=== PATIENT | male | born 1985 ===

== ENCOUNTER 2018-07-27 09:40 | Outpatient (CLI) | payer OTHER | END 2018-07-27 09:41 | disposition home or self-care (01) | LOC: C.PAT 09:40 | DX: M54.5 Low back pain (principal) ==

== ENCOUNTER 2018-08-17 05:51 | Inpatient (IN) | payer OTHER ==
[2018-07-27 09:54] VITALS: BMI 28.1
--- NOTE | 2018-08-17 07:07 | HP ---
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 He fell off a ladder dropping 8 feet. He broke his clavicle, had a right shoulder injury, but has been complaining of severe low back pain since this accident. He rates the level of pain at its baseline as a 7 on a 0 to 10 scale but escalates up to a full 10. He notes that Valsalva maneuvers exacerbated the pain. He has some numbness in his left calf, occasionally in the right foot. His treatment has included over a year of physical therapy. He has had 3 lumbar epidural steroid injections without benefit. PAST MEDICAL HISTORY: Otherwise benign. No ongoing medical problems. PAST SURGICAL HISTORY: Other than the shoulder surgery, no prior surgery. ALLERGIES: NO ALLERGIES. SOCIAL HISTORY: He has never smoked. He drinks socially. PHYSICAL EXAMINATION: EXTREMITIES: He does demonstrate good strength throughout. He has weakness in finger abduction and adduction. He does have a diminished in the ulnar half of the hand. Reflex is 1+ throughout. Baseline gait is within normal limits. He has adequate tandem. Romberg is negative. He has impressive tenderness to palpation of low lumbar area. Range of motion is limited in both flexion as well as extension. Straight leg raising produces back pain bilaterally. LABORATORY DATA: MRI shows signal loss and prolapse at L4-L5 and L5-S1. IMPRESSION: A lumbar discogram was intensely positive with injection of the L4-L5 disc, reproducing concordant pain at the level of 9. L3-L4 was entirely negative. L5-S1 produced minimal pain at the level of 2. There was epidural extravasation of the dye with the injection at the L4-L5 disc. Post-discography MRI documented tear with bilateral foraminal stenosis. PLAN: I had a long discussion with Mr. Cleaning about the options at this point. He certainly failed rather long-term conservative treatment. The discogram definitively documented the L4-L5 disc as his pain generator. I opened him the possibility of decompression, fixation, and fusion at this level. The nature of this procedure, the rationale behind it, alternatives, potential risks and complications, realistic chance of success, recovery time, and long-term outlook were discussed with him at length. All his questions were answered. He clearly understood all the above and elected to proceed. He is now being admitted for L4-L5 posterior lumbar interbody fixation and fusion. Danie Neil MD
[2018-08-17] MEDS ORDERED: ceFAZolin 1 gm in NS 1 GM/100 ML BAG IVPB ONE ×2 (07:29→08:57)
[2018-08-17] MEDS ORDERED: Absorbable Gelatin Sponge Size 100 ONE (07:29)
[2018-08-17] MEDS ORDERED: Bupivacaine Liposomal Inj 20 ml INFIL ONE (07:30)
[2018-08-17] MEDS ORDERED: Bupivacaine HCl 0.5% PF (10 ml) Inj ONE (07:31)
[2018-08-17] MEDS ORDERED: Lidocaine/Epinephrine 1% 1:100000 10 ML IJ ONE (07:31)
[2018-08-17] MEDS ORDERED: Thrombin Topical 20,000 Intl Units Spray Kit TOP ONE (07:31)
[2018-08-17] MEDS ORDERED: Sodium Chloride 0.9% 20 ML IV ONE (07:36)
[2018-08-17] MEDS ORDERED: Propofol 10 mg/ml 2,000 MG/200 ML VIAL ONE (07:41)
[2018-08-17] MEDS ORDERED: Remifentanil 1 mg/3 ml Vial IV ONE (07:41)
[2018-08-17] MEDS ORDERED: Midazolam 2 MG/2 ML VIAL ONE (07:45)
[2018-08-17] MEDS ORDERED: Bacitracin 50,000 UNIT in Sodium Chloride 0.9% Irrig 1,000 ML IR SCH (07:45)
[2018-08-17] MEDS ORDERED: Propofol 10 mg/ml Inj (20 ML) ONE (07:45)
[2018-08-17] MEDS ORDERED: Morphine 4 MG/ML VIAL ONE (11:25)
[2018-08-17] MEDS ORDERED: Lactated Ringer's 1,000 ML IV ONE ×3 (11:45→12:45)
[2018-08-17] MEDS: HYDROmorphone 0.5 mg/0.5 ml ISec IVP PRN ×3 (11:56→12:44)
--- NOTE | 2018-08-17 16:24 | RAD ---
Date of service: 08/17/2018 PROCEDURE: Intraoperative fluoroscopy HISTORY: LUMBAR DISC DERANGEMENT COMPARISON: Not available TECHNIQUE: Intraoperative fluoroscopy was provided for posterior lumbar fixation. Total time of fluoroscopy was 44.7 sec. The cumulative dose was 16.36 mGy. FINDINGS: Multiple fluoroscopic spot films are submitted demonstrating progressive stages in posterior fixation common at L4-5 with pedicle screws and vertical rods. IMPRESSION: Six
--- NOTE | 2018-08-17 21:39 | OP ---
PROCEDURE DATE: 08/17/2018 PREOPERATIVE DIAGNOSIS: Lumbar disk derangement, L4-L5. POSTOPERATIVE DIAGNOSIS: Lumbar disk derangement, L4-L5. PROCEDURE PERFORMED: L4-L5 decompression diskectomy, interbody fusion, segmental pedicle screw fixation and posterolateral fusion with iliac autograft. SURGEON: Danie Neil MD CO-SURGEON: Dr. Mynor Lopez. ANESTHESIA: General endotracheal. ESTIMATED BLOOD LOSS: 300 mL; 140 mL returned via [facility]. COMPLICATIONS: None. JUSTIFICATION: The patient is status post an accident and ever since suffering severe low back pain. Imaging workup with MRI documented disk derangements at several levels. He underwent arthroscopy with lumbar diskography which confirmed his pain generator at the L4-L5 level. He failed rather extensive conservative treatment. He was offered the possibility of operative intervention via diskectomy, interbody fusion and segmental pedicle screw fixation. Alternatives, specifically an anterior lumbar interbody fusion were discussed with him as well as the potential risks and complications of the procedure, realistic chance of success, recovery time and long-term outlook. All his questions were fully answered. He understood all the above and elected to proceed as offered. DESCRIPTION OF PROCEDURE: The patient was taken to the operating room. He was hooked up to neurophysiological monitoring, carefully intubated and anesthetized. He was placed on the OR table in a prone position on a Emmanuel frame. Care was taken to protect his face, eyes, endotracheal tube and all bony prominences. The entire low back region was then scrubbed with acetone, scrubbed, painted and draped in usual sterile manner. Incision localized with lateral fluoroscopy traced out overlying the spinous processes of L3 through L5. After prepping and draping, the incision was made and carried down to the fascia. Self-retaining retractors were placed. The Bovie cautery was used to strip the paraspinal muscles off the spinous process lamina of L4 and L5. Confirmatory x-ray was taken. The exposure was widened out laterally bilaterally to expose the entire L4-L5 facet, the pars above and below as well as the transverse processes of L4 and L5 bilaterally. Bleeding was controlled throughout with Bovie cautery and thrombinated Gelfoam. At this point, attention was turned to bone harvestation. A 5-gauge trocar was inserted directly into the right superior posterior iliac crest. Approximately 90 mL of bone marrow was aspirated. This was then spun down to obtain bone marrow mesenchymal cells in the bone fusion. The decompression was begun with a Leksell rongeur removing the inferior spinous process and lamina of L4, thinning down the L4-L5 facet bilaterally. This bone was saved and later used in the fusion. We then performed a wide laminotomy at this level with various sized Kerrison rongeurs. The thecal sac was protected throughout and generous medial facetectomies performed bilaterally. Foraminotomies performed at the exiting L4 roots and the L5 nerve roots were unroofed heading just past the pedicle. Bleeding controlled throughout with bipolar cautery and thrombinated powdered Gelfoam. At this point, the diskectomy was begun. The right L5 nerve root gently retracted medially. The disk was then incised and grossly emptied of disk material with the use of pituitary rongeurs and curettes. We then used 8 through 11-mm scrapers. We attempted to turn a 12-mm scraper but clearly this was all beginning to dig into the endplate and generated significant amount of distraction. Further decortication was then performed with various sized and shaped curettes. This identical procedure was performed back on the patient's left side, after which the disk space was packed with bone grafting material which included products of decompression, additional allograft and some mesenchymal impregnated sponges. After this, a 9 x 11 mm trapezoidal fibrin fiber fusion cage was tapped into the interspace until it was well seated and this was confirmed both visually and fluoroscopically. The identical grafting material and cage was then placed back on the right side. Again, visual inspection and x-ray confirmed excellent position of both of these implants. We then used a high-speed drill to decorticate the lateral gutters which included the transverse processes, pars and facet. We then turned our attention to the placement of the pedicular screws. Technique was used to visually and fluoroscopically identifying the pedicular entrance, drilling the cortical bone, passing a gearshift down the barrel of the pedicle into the vertebral body using a ball-tipped probe to sound the passageway and then placing the appropriate-sized screw. Using this technique, 6.0 diameter screws were placed throughout of 40 mm length throughout. No screw elicited any EMG activity less than 20 mA. Both AP and lateral fluoroscopy confirmed superb position of all four of these screws. At this point, we placed the appropriate-sized titanium rods into the screw head receptacles on each side. Locking nuts were then placed and torque-wrenched tight. We then ensure there was no foreign matter, bone etc. in and around the thecal sac. This was then coated with a layer of Gelfoam and we placed a cross connector and torque-wrenched tight its three facet points. Lastly, we then packed all remaining bone graft material into the lateral gutters to achieve the posterolateral fusion. At this point, AP and lateral x-ray confirmed superb position of the entire construct. We then reapproximated the muscle using 0 Vicryl. The fascia was closed using a tight 0 Vicryl stitch. The wound copiously irrigated with antibiotic solution. Muscles were infiltrated with long-acting local anesthetic. The subcutaneous was closed in two separate layers of 2-0 Vicryl. The skin closed with a running 3-0 Monocryl stitch, benzoin and Steri-Strips. A dressing was applied. The patient was easily aroused from anesthesia, extubated and noted to moving all groups of both lower extremities with good strength on his way to the recovery room. All counts were correct. Neurophysiological monitoring including free running EMG and somatosensory evoked potentials remained stable over the procedure. There were no complications. Danie Neil MD
[2018-08-17] MEDS: Potassium Ch 20mEq in D5-1/2NS 1,000 ML IV SCH (23:55)
[2018-08-18] MEDS: Potassium Ch 20mEq in D5-1/2NS 1,000 ML IV SCH ×2 (09:00→12:35)
--- NOTE | 2018-08-18 09:53 | CP.PCM.PN ---
Subjective - Date & Time of Evaluation Date of Evaluation: 08/18/18 Time of Evaluation: 09:52 - Subjective Subjective: POD 1 OOB in chair min complaints 5/5 BLEs P PT cont GORE SEAMER Objective - Vital Signs/Intake and Output Vital Signs (last 24 hours): Temp Pulse Resp BP Pulse Ox 98.9 F 87 20 118/70 98 08/18/18 08:51 08/18/18 08:51 08/18/18 08:51 08/18/18 08:51 08/18/18 08:51 Intake and Output: 08/18/18 08/18/18 06:59 18:59 Output Total 550 Balance -550 - Medications Medications: Current Medications Acetaminophen (Tylenol 325mg Tab) 650 mg PO Q6 PRN PRN Reason: Fever >100.4 F Last Admin: 08/18/18 00:25 Dose: 650 mg Docusate Sodium (Colace) 100 mg PO TID [facility] Last Admin: 08/18/18 09:46 Dose: 100 mg Hydromorphone/Sodium Chloride (Dilaudid Work Over Rig Operator) 6 mg IV Q4H PRN; Protocol PRN Reason: Pain, moderate (4-7) Potassium Chloride/Dextrose/Sod Cl (Potassium Chl 20 Meq In D5-1/2ns) 1,000 mls @ 100 mls/hr IV .Q10H [facility] Last Admin: 08/17/18 23:55 Dose: 100 mls/hr Ondansetron HCl (Zofran Tab) 4 mg PO Q6 [facility] Last Admin: 08/18/18 05:52 Dose: 4 mg
[2018-08-18] MEDS ORDERED: POLYETHYLENE GLYCOL 3350 17 GM/Dose PACKET PO STA (21:18)
[2018-08-19] MEDS: Potassium Ch 20mEq in D5-1/2NS 1,000 ML IV SCH ×3 (00:01→15:00)
--- NOTE | 2018-08-19 06:28 | OP ---
PROCEDURE DATE: 08/17/2018 PREOPERATIVE DIAGNOSIS: Disc derangement, L4-L5. POSTOPERATIVE DIAGNOSIS: Disc derangement, L4-L5. PROCEDURES PERFORMED: 1. Posterior lumbar interbody and lateral fusion L4-L5. 2. Use of intervertebral devices. 3. Nonsegmental spinal instrumentation. 4. Use of autograft by means of bone marrow aspiration. SURGEON: Mynor Lopez MD CO-SURGEON: Danie Neil MD ANESTHESIA: General endotracheal intubation. DESCRIPTION OF PROCEDURE: The patient was brought to the operating room. General anesthesia was achieved. Intravenous antibiotics administered and spinal cord monitoring leads were placed throughout the patient's body. Real-time monitoring was done by refinery technician in room. Remote monitoring done by a physician as well. Sequential compression boots were placed to each of the patient's legs. Once the antibiotics had been administered, a Duff catheter was inserted. The patient was then gently transferred onto the operating table and placed prone on a Emmanuel frame keeping his abdomen free from pressure anteriorly. Care was taken to protect the elbows and knees from pressure points. A sterile drape was used to seal off the patient's perineal region from the operative field and his back was sterilely prepped and draped. Lidocaine 1% with epinephrine was used to infiltrate the skin at the site for the incision as located under fluoroscopy. An incision was then made sharply in the midline, taken out subcutaneous tissue using sharp and blunt dissection. Hemostasis achieved using electrocautery. The fascia was divided and tissue stripped laterally off the spinous processes and lamina out to level of the transverse processes of L4 and L5 bilaterally. Soft tissue attachments were cleared using electrocautery with Holman elevator. Fluoroscopic views again confirmed that we were at the appropriate level. A trocar was placed in the posterior right ilium and 90 mL of bone marrow aspirate was obtained. This was sterilely passed off to the refinery technician who processed it through the harvest system and returned the collected mesenchymal stem cells back to the OR table. The stem cells were used to soak strips and cubes of Jersey sponge as well as process through the IC chamber. Thrombinated Gelfoam powder was used for hemostasis at the donor site. A Leksell rongeur was used to remove the spinous processes and thin down the lamina and laminectomy carried out in a caudal to cephalad fashion in the midline and then laterally to each side. Foraminotomies were carried out until we could easily pass a blunt tip nerve hook out on each side at each level. The laminectomy was carried out wide enough at the level of the disc space to be able to safely insert the intervertebral devices subsequently. Hemostasis achieved with bipolar cautery as well as thrombinated Gelfoam powder. A needle was placed in the 4-5 disc and again it was verified with fluoroscopy that we were at the appropriate level. At that time, the thecal sac was gently retracted and the annulus sharply incised. Disc material was removed with the combination of pituitary rongeur and the endplate natali up to including a size 11. Ring and spoon curettes were used to remove any remaining tissue from the endplate. We then went to the opposite side and again with the thecal sac protected incised the annulus and removed any remaining disc material with the endplate natali, the pituitary rongeur, the ring and spoon curettes. The bone grafting substrate which consisted of the patient's laminar bone along with the IC chamber bone and Optium putty was packed into the disc space along with the marrow-soaked cubes of Jersey. A 9 x 11 cage packed with the graft was then tamped into place and countersunk. We moved back to the original side and inspected for any remaining disc material and which was removed. More of the bone grafting substrate and the marrow-soaked cubes were then packed in the disc space and another 9 x 11 cage packed with graft was tamped into place and countersunk. A high-speed drill was used to decorticate the 4-5 facet joint along with the interlaminar spaces and the transverse processes on each side. Under fluoroscopic guidance, an entry point was created for the right L4 screw with a drill. Gearshift tool created the channel through the pedicle and the ball-tip probe was used to confirm bony integrity. A 6.0 x 40 mm Expedient screw was then inserted. Similar technique was used to the left L4 level and then both L5 screws. This was all done under fluoroscopic guidance. The gearshift tool at each level on each side was stimulated along with the shank and top of each screw and no electrophysiologic abnormalities were noted. A 6.0 x 40 mm screws were used at each insertion site. The AP view showed the screws to be in good position as well. The midline was irrigated with antibiotic solution. Hemostasis achieved with thrombinated Gelfoam powder. A large piece of solid Gelfoam was used to cover the exposed neural elements. A 45-mm precut lordotic domenica was used on the left to connect the two screws and a 40 mm domenica on the right. Caps were applied and appropriately tightened and torqued. A #7 matrix cross-link was then used to connect the two rods and add rotational stability. This was appropriately tightened and torqued as well. Final lateral and AP view showed excellent position and intervertebral devices in the hardware. The wound was closed in layers with interrupted sutures of 0 Vicryl for the muscle and the fascia. The subcutaneous tissue was copiously irrigated with antibiotic solution and 20 mL of 0.5% Marcaine along with 20 mL of Exparel which had been diluted with 20 mL of saline was injected at the paraspinal tissues to help with postoperative pain relief. The subcutaneous tissue was approximated with interrupted sutures of 2-0 Vicryl and the skin was approximated with a running subcuticular suture of 3-0 Monocryl. Steri-Strips and a sterile dressing were applied. The patient was gently transferred back onto his bed in the supine position. He is awakened and extubated. He was taken to recovery room in stable condition having tolerated the procedure well. Estimated blood loss was 300 mL. He received 2 liters of crystalloid along with 140 mL back from the Cell Saver. He was actively moving all extremities at the time of his transfer and no permanent electrophysiologic abnormalities were noted at the completion of the case. Mynor Lopez MD MTDNicolasa
[2018-08-19] MEDS ORDERED: Magnesium Hydroxide Susp 30 ml UD PO ONE ×2 (08:17→14:01)
--- NOTE | 2018-08-19 14:11 | CP.PCM.PN ---
Subjective - Date & Time of Evaluation Date of Evaluation: 08/19/18 Time of Evaluation: 14:08 - Subjective Subjective: SPINE - POD #2 Pt resting in bed. States he amb in hallway earlier with PT. Taking po. Voiding. No flatus yet. 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 VSS. Afebrile. Neuro intact throughout. Plan: Transfer to Rehab when bed available, pending authorization. Objective - Vital Signs/Intake and Output Vital Signs (last 24 hours): Temp Pulse Resp BP Pulse Ox 98.1 F 100 H 20 132/84 97 08/19/18 07:00 08/19/18 07:00 08/19/18 07:00 08/19/18 07:00 08/19/18 07:00 Intake and Output: 08/19/18 08/19/18 06:59 18:59 Output Total 650 Balance -650 - Medications Medications: Current Medications Acetaminophen (Tylenol 325mg Tab) 650 mg PO Q6 PRN PRN Reason: Fever >100.4 F Last Admin: 08/19/18 01:28 Dose: 650 mg Docusate Sodium (Colace) 100 mg PO TID [facility] Last Admin: 08/19/18 13:10 Dose: 100 mg Hydromorphone/Sodium Chloride (Dilaudid Drafting Supervisor) 6 mg IV Q4H PRN; Protocol PRN Reason: Pain, moderate (4-7) Last Admin: 08/18/18 21:07 Dose: 6 mg Potassium Chloride/Dextrose/Sod Cl (Potassium Chl 20 Meq In D5-1/2ns) 1,000 mls @ 100 mls/hr IV .Q10H [facility] Last Admin: 08/19/18 11:49 Dose: 100 mls/hr Magnesium Hydroxide (Milk Of Magnesia) 30 ml PO ONCE ONE Stop: 08/19/18 14:02 Ondansetron HCl (Zofran Tab) 4 mg PO Q6 [facility] Last Admin: 08/19/18 11:49 Dose: Not Given
[2018-08-19] MEDS: oxyCODONE 20 mg ER Tab (oxyCONTIN) PO SCH (21:18)
[2018-08-20] MEDS: Potassium Ch 20mEq in D5-1/2NS 1,000 ML IV SCH ×3 (02:21→12:00)
[2018-08-20] MEDS: oxyCODONE 20 mg ER Tab (oxyCONTIN) PO SCH ×2 (09:10→22:07)
--- NOTE | 2018-08-20 13:21 | CP.PCM.PN ---
Subjective - Date & Time of Evaluation Date of Evaluation: 08/20/18 Time of Evaluation: 13:23 - Subjective Subjective: SPINE - POD #3 Pt OOB in chair. States he continues to improve. Had BM after MOM. Afebrile. VSS. Neuro exam unchanged. Plan: Rehab placement. Evidently not authorized to go to place in [place]. They will look for another place on Wednesday. Will see if he can ambulate with a RW over weekend. Objective - Vital Signs/Intake and Output Vital Signs (last 24 hours): Temp Pulse Resp BP Pulse Ox 98.8 F 92 H 20 112/69 97 08/20/18 08:56 08/20/18 08:56 08/20/18 08:56 08/20/18 08:56 08/20/18 08:56 - Medications Medications: Current Medications Acetaminophen (Tylenol 325mg Tab) 650 mg PO Q6 PRN PRN Reason: Fever >100.4 F Last Admin: 08/19/18 01:28 Dose: 650 mg Docusate Sodium (Colace) 100 mg PO TID [facility] Last Admin: 08/20/18 09:11 Dose: 100 mg Hydromorphone/Sodium Chloride (Dilaudid De Icer Finisher) 6 mg IV Q4H PRN; Protocol PRN Reason: Pain, moderate (4-7) Last Admin: 08/18/18 21:07 Dose: 6 mg Potassium Chloride/Dextrose/Sod Cl (Potassium Chl 20 Meq In D5-1/2ns) 1,000 mls @ 100 mls/hr IV .Q10H [facility] Last Admin: 08/20/18 02:21 Dose: 100 mls/hr Ondansetron HCl (Zofran Tab) 4 mg PO Q6 [facility] Last Admin: 08/20/18 00:00 Dose: Not Given Oxycodone HCl (Oxycontin Extended Release Tab) 20 mg PO Q12 [facility] Last Admin: 08/20/18 09:10 Dose: Not Given Oxycodone/Acetaminophen (Percocet 5/325 Mg Tab) 1 tab PO Q4H PRN PRN Reason: Pain, Mild (1-3) Stop: 08/22/18 14:13
[2018-08-20] MEDS: Oxycodone/Acetaminophen 5/325 mg Tab PO PRN (15:07)
[2018-08-21] MEDS: oxyCODONE 20 mg ER Tab (oxyCONTIN) PO SCH (09:07)
[2018-08-21] MEDS: Oxycodone/Acetaminophen 5/325 mg Tab PO PRN (23:53)
[2018-08-22 02:15] VITALS: RESP 20
[2018-08-22] MEDS: Oxycodone/Acetaminophen 5/325 mg Tab PO PRN (09:39)
[2018-08-23 07:53] VITALS: BP 126/78; PULSE 84; TEMP 97.8; O2SAT 100
[2018-08-23] MEDS ORDERED: Oxycodone/Acetaminophen 5/325 mg Tab PO PRN (08:02)
--- NOTE | 2018-09-01 08:14 | DS ---
Mr. Cleaning was admitted for a lumbar decompression fixation and fusion which he underwent uneventfully the day of surgery. Postoperatively, he was treated with patient-controlled anesthesia for a couple of days and switched to oral pain killers. He was also seen by the Physiotherapy Service. He was mobilized. He had an issue going home because of the stairs in his building. Ultimately by 08/23/2018, he was mobilized, has not been ambulatory. He was safely discharged. He will be followed up in my office. Danie Neil MD
== END 2018-08-23 12:10 | disposition home health service (06) | DRG 460 ==
LOC: C.9S 05:51 → C.6T 12:13
PROVIDERS: ADMIT Neurological Surgery; ATTEND Neurological Surgery
PROC: 0SB20ZZ Excision of Lumbar Vertebral Disc, Open Approach (ICD-10-PCS; 2018-08-17)
PROC: 07DR3ZZ Extraction of Iliac Bone Marrow, Percutaneous Approach (ICD-10-PCS; 2018-08-17)
PROC: 0SG0071 Fusion of Lumbar Vertebral Joint with Autologous Tissue Substitute, Posterior Approach, Posterior Column, Open Approach (ICD-10-PCS; principal; 2018-08-17 07:45)
DX: M51.16 Intervertebral disc disorders with radiculopathy, lumbar region (principal); M48.061 Spinal stenosis, lumbar region without neurogenic claudication; W11.XXXS Fall on and from ladder, sequela; Z75.1 Person awaiting admission to adequate facility elsewhere